=== PATIENT | male | born 1975 | race Native Hawaiian/Other Pacific Islander ===

== ENCOUNTER 2018-02-06 14:36 | Emergency (ER) | payer OTHER ==
[~2018-02-06] VITALS: Ht 190.5 cm; Wt 145.2 kg
[~2018-02-06 14:36] MED LIST: PENICILLN VK500 MG PO; TRAM50TA PO
[2018-02-06 14:40] VITALS: TEMP 98.4
[2018-02-06 15:12] LABS: PLATELET COUNT 97 K/uL (142-355)
[2018-02-06 15:21] LABS: SODIUM 138 mmol/L (136-145)
[2018-02-06 18:30] VITALS: BP 135/83
== END 2018-02-06 18:31 | disposition home or self-care (01) ==
LOC: ED 14:36
PROVIDERS: Emergency Medicine
DX: R07.89 Other chest pain (principal); I10 Essential (primary) hypertension; I48.91 Unspecified atrial fibrillation; I48.92 Unspecified atrial flutter
CPT/HCPCS: 36415; 80053; 82550; 82553; 84484; 85027; 85379; 93005; 96374; 99284; J2270; J2405